=== PATIENT | female | born 1965 | race Hispanic/Latino ===

== ENCOUNTER 2016-09-18 10:16 | Emergency (ER) | payer OTHER ==
[~2016-09-18] VITALS: Ht 165.1 cm; Wt 68.0 kg
[~2016-09-18 10:16] MED LIST: CARAFATE1 GM/10 ML PO; IBU600 MG PO; OMEPRAZOLE D/R20 MG PO; TRAMADOL50 MG PO
--- NOTE | 2016-09-18 10:46 | ED GENERAL ADULT ---
History of Present Illness General Chief Complaint: Neck/Upper Back Pain/Injury Stated Complaint: NECK AND UPPER BACK PAIN X 1WEEK Source: patient, family, old records Exam Limitations: language barrier Vital Signs & Intake/Output Vital Signs & Intake/Output Vital Signs Date Time Temp Pulse Resp B/P Pulse O2 O2 Flow FiO2 Ox Delivery Rate 09/18 1235 97.8 62 20 154/83 99 Room Air 09/18 1020 96.9 71 18 148/92 98 Room Air Allergies Coded Allergies: No Known Allergies (12/09/15) Reconcile Medications Omeprazole 20 MG ECC 1 CAP PO DAILY GI (Reported) Triage Note: 51 Y/O FEMALE C/O HEADACHE AND NECK PAIN X 8 DAYS; DENIES INJURY OR TRAUMA. STATES NECK PAIN IS WORSE WITH MOVEMENT OR TURNING HEAD SIDE TO SIDE. Triage Nurses Notes Reviewed? yes Onset: Last week Duration: day(s):, continues in ED, waxing and waning Timing: recent history Injury Environment: home Severity: moderate No Modifying Factors: none LMP (ages 10-50): post menopausal : No Patient currently breastfeeds: No HPI: Patient reports suffering from chronic headaches. 8 days prior to admission patient reports waxing and waning generalized headache radiating to her neck and shoulders monitor severe mild to moderate improvement with ibuprofen. The pain is worse with head movement. There's been no fever chills nausea vomiting diarrhea abdominal pain chest pain shortness of breath dysuria rash bleeding change in motor sensory function change in bowel bladder habit trauma. Past History Travel History Traveled to [place] past 21 day No Medical History Any Pertinent Medical History? see below for history Neurological: NONE EENT: NONE Cardiovascular: NONE Respiratory: NONE Gastrointestinal: GERD, ULCERS Hepatic: NONE Renal: NONE Musculoskeletal: NONE Psychiatric: NONE Endocrine: NONE Blood Disorders: NONE Cancer(s): NONE GENERAL DOC/Reproductive: NONE Surgical History Surgical History: UTERINE POLYPECTOMY Psychosocial History What is your primary language Luxembourgish Tobacco Use: Never used Family History Hx Contributory? No Review of Systems Review of Systems Constitutional: Reports: no symptoms. EENTM: Reports: no symptoms. Respiratory: Reports: no symptoms. Cardiovascular: Reports: no symptoms. GI: Reports: no symptoms. Genitourinary: Reports: no symptoms. Musculoskeletal: Reports: see HPI, muscle pain, neck pain. Skin: Reports: no symptoms. Neurological/Psychological: Reports: see HPI, headache. Hematologic/Endocrine: Reports: no symptoms. Immunologic/Allergic: Reports: no symptoms. All Other Systems: Reviewed and Negative Physical Exam Physical Exam General Appearance: well developed/nourished, alert, awake, anxious, mild distress, obese Head: atraumatic, normal appearance Eyes: Bilateral: normal appearance, PERRL, EOMI. Ears, Nose, Throat: normal pharynx, normal ENT inspection Neck: normal inspection, full range of motion, no midline tenderness Respiratory: normal breath sounds, chest non-tender, no respiratory distress, quiet respiration, lungs clear Cardiovascular: regular rate/rhythm, normal peripheral pulses, norml femoral pulses equa Peripheral Pulses: 4+ carotid (R), 4+ carotid (L) Gastrointestinal: normal bowel sounds, soft, non-tender, no organomegaly Back: normal inspection, normal range of motion, no vertebral tenderness Extremities: normal inspection, normal capillary refill, normal range of motion, no edema Neurologic/Psych: no motor/sensory deficits, awake, alert, oriented x 3, normal gait, 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 Skin: intact, normal color, warm/dry Lymphatic: no anterior cervical negrita Core Measures ACS in differential dx? No CVA/TIA Diagnosis: No Severe Sepsis Present: No Septic Shock Present: No Progress Differential Diagnoses I considered the following diagnoses in my evaluation of the patient: Cluster headache migraine headache tension headache cervical myofascial pain syndrome Plan of Care: Orders Procedure Date/time Status COMPREHENSIVE METABOLIC PANEL 09/18 1036 Complete CBC WITHOUT DIFFERENTIAL 09/18 1036 Complete Laboratory Tests 09/18/16 1048: Anion Gap 11, Estimated GFR > 60, BUN/Creatinine Ratio 21.3, Glucose 103 H, Calcium 9.0, Total Bilirubin 0.6, AST 47 H, ALT 65 H, Alkaline Phosphatase 89, Total Protein 7.2, Albumin 4.1, Globulin 3.1, Albumin/Globulin Ratio 1.3, CBC w Diff NO MAN DIFF REQ, RBC 4.41, MCV 82.5, MCH 28.4, RDW 12.4, MPV 8.0, Gran % 51.3, Lymphocytes % 37.8, Monocytes % 7.8, Eosinophils % 2.7, Basophils % 0.4, Absolute Granulocytes 2.7, Absolute Lymphocytes 2.0, Absolute Monocytes 0.4, Absolute Eosinophils 0.1, Absolute Basophils 0, PUBS MCHC 34.4 Diagnostic Imaging: Viewed by Me: CT Scan. Discussed w/RAD: CT Scan. Radiology Impression: no acute abnormality Initial ED EKG: none Departure Departure Time of Disposition: 1404 Disposition: HOME OR SELF CARE Condition: Stable Clinical Impression Primary Impression: Cervical myofascial pain syndrome Secondary Impressions: Headache Qualifiers: Headache type: unspecified Headache chronicity pattern: acute headache Intractability: not intractable Qualified Code: R51 - Headache Referrals: PATIENT HAS NO PRIMARY CARE DR (PCP/Family) Referred to [facility] as new patient No Departure Forms: Customer Survey General Discharge Information Prescriptions: Current Visit Scripts Baclofen 1-2 TAB PO TID PRN muscle strain #30 TAB Butalb/Acetaminophen/Caffeine (Fioricet 50-300-40 MG Capsule) 1-2 TAB PO Q6P PRN headache #30 TAB Critical Care Note Critical Care Note Critical Care Time: non-applicable
[2016-09-18 11:14] LABS: ABSOLUTE BASOPHIL COUNT 0 /CUMM (0.0-0.2); ABSOLUTE EOSINOPHIL COUNT 0.1 /CUMM (0.0-0.7); ABSOLUTE GRANULOCYTE CT 2.7 /CUMM (1.4-6.5); ABSOLUTE MONOCYTE COUNT 0.4 /CUMM (0.10-0.60); BASOPHIL % 0.4 % (0.0-2.0); EOSINOPHIL % 2.7 % (0-5); GRANULOCYTE % 51.3 % (42.2-75.2); HEMATOCRIT 36.4 % (37-47); MEAN CORPUSCULAR HGB 28.4 PG (27.0-31.0); MEAN CORPUSCULAR HGB CONC 34.4 G/DL (33.0-37.0); MEAN CORPUSCULAR VOLUME 82.5 FL (81.0-99.0); PLATELET COUNT 282 /CUMM (130-400); RBC DISTRIBUTION WIDTH 12.4 % (11.5-14.5); RED BLOOD CELL CT 4.41 /CUMM (4.20-5.40); WHITE BLOOD CELL COUNT 5.2 /CUMM (4.8-10.8)
--- NOTE | 2016-09-18 12:40 | CT SCAN REPORT ---
EXAMINATION: CT HEAD WITHOUT CONTRAST CLINICAL INFORMATION: Migraine, 8 days of headache. COMPARISON: None. TECHNIQUE: Contiguous axial imaging was performed from the skull base to vertex without intravenous administration of contrast. DLP: 529.16 mGy-cm. FINDINGS: There is no evidence of acute intracranial hemorrhage or territorial infarction. No abnormal mass effect or midline shift is seen. Mckeon to white matter differentiation is well preserved. No extra-axial fluid collections are identified. The ventricles are normal in size. There is no abnormal attenuation within the brain parenchyma. The osseous structures and soft tissues are normal. The mastoid air cells and visualized portions of the paranasal sinuses are well aerated. IMPRESSION: 1. There are no acute intracranial findings. 2. The visualized mastoid air cells and paranasal sinuses are well-aerated.
[2016-09-18] MEDS ORDERED: BACLOFEN10 M1 PO (14:06)
[2016-09-18] MEDS ORDERED: FIORICET 50-301 EACH PO (14:06)
[2016-09-18 14:11] VITALS: BP 148/70
== END 2016-09-18 14:14 ==
LOC: ERH 10:16
PROVIDERS: Emergency Medicine
DX: M54.2 Cervicalgia (principal); R51 Headache
CPT/HCPCS: 96361; 96374; 96375; J0131; J2765; J3360

== ENCOUNTER 2016-10-13 12:41 | Emergency (ER) | payer OTHER ==
[~2016-10-13] VITALS: Ht 162.6 cm; Wt 70.8 kg
[~2016-10-13 12:41] MED LIST changes: +BACLOFEN10 M1 PO; +FIORICET 50-301 EACH PO
[2016-10-13] MEDS ORDERED: OMEPRAZOLE20 M2 PO (13:14)
[2016-10-13 14:04] LABS: ABSOLUTE BASOPHIL COUNT 0 /CUMM (0.0-0.2); ABSOLUTE EOSINOPHIL COUNT 0.1 /CUMM (0.0-0.7); ABSOLUTE GRANULOCYTE CT 6.8 /CUMM (1.4-6.5); ABSOLUTE LYMPH COUNT 1.2 /CUMM (1.2-3.4); ABSOLUTE MONOCYTE COUNT 0.7 /CUMM (0.10-0.60); BASOPHIL % 0.2 % (0.0-2.0); EOSINOPHIL % 0.9 % (0-5); HEMATOCRIT 40.2 % (37-47); MEAN CORPUSCULAR HGB 28.6 PG (27.0-31.0); MEAN CORPUSCULAR HGB CONC 34.2 G/DL (33.0-37.0); MEAN CORPUSCULAR VOLUME 83.6 FL (81.0-99.0); MEAN PLATELET VOLUME 8.4 FL (7.4-10.4); PLATELET COUNT 257 /CUMM (130-400); RBC DISTRIBUTION WIDTH 12.3 % (11.5-14.5); RED BLOOD CELL CT 4.82 /CUMM (4.20-5.40); WHITE BLOOD CELL COUNT 8.8 /CUMM (4.8-10.8)
[2016-10-13 14:05] LABS: GRANULOCYTE % 77.1 % (42.2-75.2)
--- NOTE | 2016-10-13 14:59 | ED GI/GU/ABDOMINAL COMPLAINT ---
History of Present Illness General Chief Complaint: Abdominal Pain/Flank Pain Stated Complaint: ABD PAIN Source: patient Exam Limitations: no limitations Vital Signs & Intake/Output Vital Signs & Intake/Output Vital Signs Date Time Temp Pulse Resp B/P Pulse O2 O2 Flow FiO2 Ox Delivery Rate 10/13 1925 68 18 134/78 96 Room Air 10/13 1613 98.0 68 18 128/77 99 Room Air 10/13 1249 98.1 67 20 126/80 97 Room Air Allergies Coded Allergies: No Known Allergies (12/09/15) Triage Note: RECEIVED 51 YO FEMALE C/O MID UPPER ABDOMINAL PAIN, STARTED YESTERDAY, MUCH WORSE THIS AM WITH NAUSEA AND VOMITING X 2. Triage Nurses Notes Reviewed? yes ? n Is pt currently ? No Onset: Abrupt Duration: day(s): (few), constant, continues in ED Timing: recent history Location: epigastric Radiation: no radiation Activities at Onset: none No Modifying Factors: none HPI: 51-year-old female comes into emergency room for further evaluation of upper abdominal pain has been going on for the past couple days. Patient has had associated belching. Denies any blood in her stool. 2 episodes of vomiting. Patient has also been feeling dizzy. Denies any chest pain or shortness of breath. History of ulcers in the past and had an upper endoscopy done a little over a month ago which confirmed an ulcer. Patient has been on omeprazole at home. Denies any fever or chills. Denies any other associated symptoms. (DIDIER TRACY,JORGE) Reconcile Medications Baclofen 10 MG TABLET 1-2 TAB PO TID PRN muscle strain Butalb/Acetaminophen/Caffeine (Fioricet 50-300-40 MG Capsule) 50 MG-300 MG-40 MG CAPSULE 1-2 TAB PO Q6P PRN headache Omeprazole 20 MG ECC 1 CAP PO DAILY GI (Reported) Omeprazole 20 MG CAPSULE.DR 1 CAP PO DAILY ULCER (Reported) Ondansetron (Zofran Odt) 4 MG TAB.RAPDIS 1 TAB SL TID NAUSEA Oxycodone HCl/Acetaminophen (Percocet 5-325 MG Tablet) 5 MG-325 MG TABLET 1-2 TAB PO Q6P PRN pain Scopolamine Hydrobromide (Transderm-Scop) 1.5MG/3DAY PATCH.TD.3 1 PAT TOP Q3D NAUSEA apply to the hairless area behind 1 ear at least 4 hours before effect is required; reapply every 3 days as needed (LACY ENGEL DO) Past History Travel History Traveled to [place] past 21 day No Medical History Any Pertinent Medical History? 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 No (JORGE MONDRAGON) Review of Systems Review of Systems Constitutional: Reports: no symptoms. EENTM: Reports: no symptoms. Respiratory: Reports: no symptoms. Cardiovascular: Reports: no symptoms. GI: Reports: see HPI. Genitourinary: Reports: see HPI. Musculoskeletal: Reports: no symptoms. Skin: Reports: no symptoms. Neurological/Psychological: Reports: no symptoms. Hematologic/Endocrine: Reports: no symptoms. Immunologic/Allergic: Reports: no symptoms. All Other Systems: Reviewed and Negative (JORGE MONDRAGON) Physical Exam Physical Exam General Appearance: well developed/nourished, no apparent distress, alert Head: atraumatic, normal appearance Eyes: Bilateral: normal appearance, PERRL, EOMI. Ears, Nose, Throat, Mouth: hearing grossly normal, moist mucous membrane Neck: normal inspection, supple, full range of motion Respiratory: normal breath sounds, chest non-tender, no respiratory distress Cardiovascular: regular rate/rhythm Gastrointestinal: normal bowel sounds, soft, tenderness (epigastric) Back: normal inspection Extremities: normal range of motion Neurologic/Psych: awake, alert, oriented x 3, normal gait, normal mood/affect Skin: intact, normal color Core Measures ACS in differential dx? No Severe Sepsis Present: No Septic Shock Present: No (JORGE MONDRAGON) Progress Differential Diagnosis: appendicitis, biliary colic, bowel obstruction, cholecystitis, diverticulitis, gastritis, hepatitis, hernia, intrauterine , kidney stone, ovarian cyst, ovarian torsion, pancreatitis, PID/ cervicitis, peptic ulcer, PUD/GERD, perforated viscous, SBO, threatened AB, UTI/ pyelo Plan of Care: Orders Procedure Date/time Status URINALYSIS 10/13 1328 Complete TROPONIN LEVEL 10/13 1327 Complete LIPASE 10/13 1328 Complete COMPREHENSIVE METABOLIC PANEL 10/13 1327 Complete CBC WITHOUT DIFFERENTIAL 10/13 1327 Complete AMYLASE 10/13 1327 Complete EKG 10/13 1308 Active Laboratory Tests 10/13/16 1345: Urine Color STRAW, Urine Clarity CLEAR, Urine pH 6.0, Ur Specific [place] <= 1.005, Urine Protein NEG, Urine Ketones NEG, Urine Nitrite NEG, Urine Bilirubin NEG, Urine Urobilinogen 0.2, Ur Leukocyte Esterase NEG, Ur Microscopic EXAM NOT REQUIRED, Urine Hemoglobin NEG, Urine Glucose NEG 10/13/16 1330: Anion Gap 12, Estimated GFR > 60, BUN/Creatinine Ratio 22.9, Glucose 92, Calcium 9.3, Total Bilirubin 0.5, AST 29, ALT 48, Alkaline Phosphatase 93, Troponin I < 0.01, Total Protein 7.6, Albumin 4.4, Globulin 3.2, Albumin/Globulin Ratio 1.4, Amylase 90, Lipase 200, CBC w Diff NO MAN DIFF REQ, RBC 4.82, MCV 83.6, MCH 28.6 , RDW 12.3, MPV 8.4, Gran % 77.1 H, Lymphocytes % 14.0 L, Monocytes % 7.8, Eosinophils % 0.9, Basophils % 0.2, Absolute Granulocytes 6.8 H, Absolute Lymphocytes 1.2, Absolute Monocytes 0.7 H, Absolute Eosinophils 0.1, Absolute Basophils 0, PUBS MCHC 34.2 Diagnostic Imaging: Viewed by Me: CT Scan. Discussed w/RAD: CT Scan. Radiology Impression: SERVICE DATE: 10/13/16 EXAM TYPE: CAT - CT ABD & PELVIS W IV CONTRAST EXAMINATION: CT ABDOMEN AND PELVIS WITH CONTRAST CLINICAL INFORMATION: Abdominal pain. COMPARISON: Multiple priors, most recent CT abdomen /pelvis dated 12/11/2015. TECHNIQUE: Multidetector volumetric imaging was performed of the abdomen and pelvis before and after the IV administration of 93 mL of Optiray 320 intravenous contrast. Sagittal and coronal reformatted images were obtained on the technologist's workstation. DLP: 292.35 mGy-cm. FINDINGS: LUNG BASES: There are dependent atelectatic changes in the bilateral lung bases. The lungs are otherwise clear. LIVER, GALLBLADDER, AND BILIARY TREE: An indeterminate hypodense lesion is again noted within the left lobe of the liver now measuring 2.6 cm in greatest dimension (previously 2.5 cm with more vague borders). Followup 3-phase CT or dedicated liver MR could be considered to help further characterize. The gallbladder is unremarkable with no evidence of radiopaque gallstones, gallbladder wall thickening, or obvious pericholecystic inflammatory changes. PANCREAS: Unremarkable. SPLEEN: Unremarkable. ADRENAL GLANDS: Unremarkable. KIDNEYS AND URETERS: The kidneys are normal in size, shape , and attenuation. There is a stable 6 mm hypodensity within the midpole of the left kidney, likely representing a cyst. No hydronephrosis, hydroureter, or calculi seen. No perinephric stranding. BLADDER: Unremarkable. GASTROINTESTINAL TRACT: There is no large- or small-bowel obstruction. 1.2 cm ovoid hyperdensities are noted within the cecum and the hepatic flexure, which could represent ingested pills. The appendix is normal. ABDOMINAL WALL: No significant hernia is appreciated. LYMPH NODES: Normal. VASCULAR: Unremarkable. PELVIC VISCERA: Unremarkable. OSSEOUS STRUCTURES: Mild degenerative changes are noted within the visualized thoracic and lumbar spine. There is no lytic or blastic osseous lesion. IMPRESSION: 1. No acute intra-abdominal pathology. 2. Indeterminate hypodense lesion within the left lobe of the liver which appears slightly more prominent than on the prior examination. Followup triple-phase hepatic CT or dedicated hepatic MRI could be considered to help further characterize if clinically indicated. 3. No large- or small-bowel obstruction. Hyperdensities within the cecum and hepatic flexures, which could represent ingested pills. DICTATED BY: DANAE TAYLOR MD DATE/TIME DICTATED:10/13/161447 ATTENDING PHYSICIAN:SARAH DATE/TIME TRANSCRIBED:10/13/161447 CONFIDENTIAL, DO NOT COPY WITHOUT APPROPRIATE AUTHORIZATION. <Electronically signed in Other Vendor System> SIGNED BY: DANAE TAYLOR MD 10/13/16 1523 Initial ED EKG: normal intervals, normal p-waves, normal sinus rhythm, rate (66) , nonspecific ST T wave chg (JORGE MONDRAGON) Departure Departure Disposition: HOME OR SELF CARE Condition: Stable Clinical Impression Primary Impression: Abdominal pain Secondary Impressions: Nausea and vomiting Referrals: PATIENT HAS NO PRIMARY CARE DR (PCP/Family) Additional Instructions: Take Zofran ODT and scopolamine appropriate as prescribed. Follow-up with your GI doctor on Saturday. Return to the emergency room immediately if any other concerns worsening symptoms. Please go over all results of today's visit with your primary care doctor. Contact your primary care doctor to let them know you were here in the emergency room. There may be nonspecific findings which may not be related to your visit today here in the emergency room but may require further evaluation and chronic monitoring by your primary care doctor. If you had a laceration today the chance of foreign body always remains. You should follow-up with your primary care doctor for recheck in 3-5 days for a wound check. If you had an x-ray done there is a chance that a fracture could have been missed on initial read and you should follow-up with your primary care doctor for repeat x-rays if symptoms persist. If your blood pressure was elevated here in the emergency room please have rechecked by her primary care doctor within the next 48 hours by your primary care doctor. If you were prescribed a narcotic here in the emergency room or any type of controlled substances you're not allowed to drive while taking this medication or operate any type of heavy machinery. Narcotics can make you feel lightheaded dizziness nausea and can cause constipation. You may need to pickling operator a stool softener. Thank you for choosing [facility] emergency room. Please return to the emergency room immediately if you have any other concerns worsening of symptoms. Departure Forms: Customer Survey General Discharge Information Comments 10/13/2016 6:59:11 PM Patient clinically looks well. Patient is nontoxic-appearing. Patient is in no apparent distress. Patient reevaluated multiple times here in the emergency room. After multiple doses of IV meds patient feels better. Patient referred back to her GI doctor. Patient has no chest pain or shortness of breath here. Shared decision making. Patient wants to go home and feels well enough to go home. Rectal exam revealed no blood. Patient has abdominal pain on exam. I do not feel that this is an atypical cardiac presentation. Daughter was sick with similar symptoms. 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 Symptoms could be viral versus peptic ulcer disease. Return to the emergency room immediately if any other concerns worsening symptoms. Case was discussed with Dr. garcia. (DIDIER TRACYOWENTON) Departure Prescriptions: Current Visit Scripts Ondansetron (Zofran Odt) 1 TAB SL TID #15 TAB Scopolamine Hydrobromide (Transderm-Scop) 1 PAT TOP Q3D #4 PAT apply to the hairless area behind 1 ear at least 4 hours before effect is required; reapply every 3 days as needed Oxycodone HCl/Acetaminophen (Percocet 5-325 MG Tablet) 1-2 TAB PO Q6P PRN pain #12 TAB PA/SECURITY SALES CONSULTANT Co-Sign Statement Statement: ED Attending supervision documentation- [] I saw and evaluated the patient. I have also reviewed all the pertinent lab results and diagnostic results. I agree with the findings and the plan of care as documented in the PA's/SECURITY SALES CONSULTANT's documentation. [x] I have reviewed the ED Record and agree with the PA's/SECURITY SALES CONSULTANT's documentation. [] Additions or exceptions (if any) to the PAs/SECURITY SALES CONSULTANT's note and plan are summarized below: [] (LACY ENGEL DO
--- NOTE | 2016-10-13 15:23 | CT SCAN REPORT ---
EXAMINATION: CT ABDOMEN AND PELVIS WITH CONTRAST CLINICAL INFORMATION: Abdominal pain. COMPARISON: Multiple priors, most recent CT abdomen/pelvis dated 12/11/2015. TECHNIQUE: Multidetector volumetric imaging was performed of the abdomen and pelvis before and after the IV administration of 93 mL of Optiray 320 intravenous contrast. Sagittal and coronal reformatted images were obtained on the technologist's workstation. DLP: 292.35 mGy-cm. FINDINGS: LUNG BASES: There are dependent atelectatic changes in the bilateral lung bases. The lungs are otherwise clear. LIVER, GALLBLADDER, AND BILIARY TREE: An indeterminate hypodense lesion is again noted within the left lobe of the liver now measuring 2.6 cm in greatest dimension (previously 2.5 cm with more vague borders). Followup 3-phase CT or dedicated liver MR could be considered to help further characterize. The gallbladder is unremarkable with no evidence of radiopaque gallstones, gallbladder wall thickening, or obvious pericholecystic inflammatory changes. PANCREAS: Unremarkable. SPLEEN: Unremarkable. ADRENAL GLANDS: Unremarkable. KIDNEYS AND URETERS: The kidneys are normal in size, shape, and attenuation. There is a stable 6 mm hypodensity within the midpole of the left kidney, likely representing a cyst. No hydronephrosis, hydroureter, or calculi seen. No perinephric stranding. BLADDER: Unremarkable. GASTROINTESTINAL TRACT: There is no large- or small-bowel obstruction. 1.2 cm ovoid hyperdensities are noted within the cecum and the hepatic flexure, which could represent ingested pills. The appendix is normal. ABDOMINAL WALL: No significant hernia is appreciated. LYMPH NODES: Normal. VASCULAR: Unremarkable. PELVIC VISCERA: Unremarkable. OSSEOUS STRUCTURES: Mild degenerative changes are noted within the visualized thoracic and lumbar spine. There is no lytic or blastic osseous lesion. IMPRESSION: 1. No acute intra-abdominal pathology. 2. Indeterminate hypodense lesion within the left lobe of the liver which appears slightly more prominent than on the prior examination. Followup triple-phase hepatic CT or dedicated hepatic MRI could be considered to help further characterize if clinically indicated. 3. No large- or small-bowel obstruction. Hyperdensities within the cecum and hepatic flexures, which could represent ingested pills.
[2016-10-13] MEDS ORDERED: TRANSDERM-SCOP1 EACH TOP (18:33)
[2016-10-13] MEDS ORDERED: ZOFRAN ODT4 M1 SL (18:33)
[2016-10-13] MEDS ORDERED: PERCOCET 5-3251 EACH PO (19:20)
[2016-10-13 19:25] VITALS: BP 134/78
== END 2016-10-13 19:26 ==
LOC: ERH 12:41
PROVIDERS: Physician Assistant Medical
DX: R10.13 Epigastric pain (principal); R11.2 Nausea with vomiting, unspecified
CPT/HCPCS: 74177; 81003; 93005; 93010; 96361; 96365; 96375; J2765; J3360

== ENCOUNTER 2016-12-26 08:06 | Emergency (ER) | payer OTHER ==
[~2016-12-26] VITALS: Ht 152.4 cm; Wt 72.1 kg
[~2016-12-26 08:06] MED LIST changes: +OMEPRAZOLE20 M2 PO; +PERCOCET 5-3251 EACH PO; +TRANSDERM-SCOP1 EACH TOP; +ZOFRAN ODT4 M1 SL
[2016-12-26 08:12] VITALS: BP 148/84
--- NOTE | 2016-12-26 08:44 | ED UPPER/LOWER EXTREMITY COMPL ---
History of Present Illness General Chief Complaint: Lower Extremity Problems Stated Complaint: CAROLYN FOOT PAIN Source: patient, family, old records Exam Limitations: language barrier Vital Signs & Intake/Output Vital Signs & Intake/Output Vital Signs Date Time Temp Pulse Resp B/P Pulse O2 O2 Flow FiO2 Ox Delivery Rate 12/26 0823 98 12/26 08 97.8 68 20 148/84 98 Room Air Allergies Coded Allergies: No Known Allergies (12/09/15) Reconcile Medications Baclofen 10 MG TABLET 1-2 TAB PO TID PRN muscle strain Butalb/Acetaminophen/Caffeine (Fioricet 50-300-40 MG Capsule) 50 MG-300 MG-40 MG CAPSULE 1-2 TAB PO Q6P PRN headache Omeprazole 20 MG ECC 1 CAP PO DAILY GI (Reported) Omeprazole 20 MG CAPSULE.DR 1 CAP PO DAILY ULCER (Reported) Ondansetron (Zofran Odt) 4 MG TAB.RAPDIS 1 TAB SL TID NAUSEA Oxycodone HCl/Acetaminophen (Percocet 5-325 MG Tablet) 5 MG-325 MG TABLET 1-2 TAB PO Q6P PRN pain Scopolamine Hydrobromide (Transderm-Scop) 1.5MG/3DAY PATCH.TD.3 1 PAT TOP Q3D NAUSEA apply to the hairless area behind 1 ear at least 4 hours before effect is required; reapply every 3 days as needed Tylenol With Codeine (Tylenol With Codeine #3 Tablet) 300 MG-30 MG TABLET 1 TAB PO BIDP PRN PAIN Triage Note: PT C/O BILATERAL HAND AND FOOT PAIN X MONTHS BUT STATES TODAY THE PAIN IS WORSE. PT DENIES ANY INJURY Triage Nurses Notes Reviewed? yes Onset: Gradual Duration: x several years Timing: recent history Severity: moderate, severe Severity Numbers: 10 Pain/Injury Location: Bilateral: Hand. HPI: 51-year-old female presents emergency room with her daughter who is providing the history as the patient does not speak Indonesian complaining of a several year history of bilateral hand and foot pain has been getting worse over the past several months. The patient is currently visiting from [facility]. She's been taking dyap-ohf-dulbisy Aleve without improvement she denies any known injury or trauma no recent tick or insect bites. No rashes to her skin no swelling to her joints. She denies any chest pain shortness of breath abdominal pain nausea or vomiting fevers or chills. Nothing makes the pain better or worse (BESS MCMILLAN) Past History Travel History Traveled to [place] past 21 day No Medical History Any Pertinent Medical History? 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 No (BESS MCMILLAN) Review of Systems Review of Systems Constitutional: Reports: see HPI. All Other Systems: Reviewed and Negative Comments Review of systems: See HPI, All other systems negative. Constitutional, no chills no fever, no malaise HEENT: No visual changes no sore throat no congestion Cardiovascular: No chest pain , no palpitation , Skin, no rashes, no change in skin Respiratory: No dyspnea no cough no sputum no hemoptysis GI: No nausea no vomiting, no diarrhea, : No dysuria No hematuria, Muscle skeletal: joint pain, no joint swelling, no back pain, no neck pain, Neurologic: No numbness no confusion, no headache Psych: No stress Heme/endocrine: No bruising no bleeding Immunology: No lymphadenopathy (BESS MCMILLAN) Physical Exam Physical Exam General Appearance: well developed/nourished, no apparent distress, alert Comments: Well-developed well-nourished patient in no apparent distress. HEENT: Atraumatic, extraocular motion intact Neck: Supple, FROM Back: FROM, Nontender Cardiovascular: Regular rate and rhythms no murmurs rubs Respiratory: Chest nontender.There were no bony deformities, no asymmetry. No respiratory distress. Patient speaking in full complete sentences. Breath sounds clear to auscultation bilaterally: NO W/R/R Shoulder: Atraumatic/Stable. FROM . Elbow: Atraumatic/stable. FROM. No laxity Upper arm/Forearm: Atraumatic. Nontender. 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 Skin intact. FROM Pulses: Normal/equal radial pulses bilaterally. Brisk cap refill Hip/Pelvis: Atraumatic/Stable. FROM. No pain with pelvic compression Knee: Atraumatic/stable. FROM. No joint swelling, no effusion. No laxity. No pain with ROM Leg: Atraumatic. Nontender. No edema, 5 out of 5 strength in the lower extremity, normal dorsiflexion of great toe bilaterally, gross sensation is intact Ankle/Foot: Atraumatic/stable. Skin intact. FROM. No swelling, no effusion. No laxity on exam Pulses: Normal/equal DP/PT pulses bilaterally. Brisk cap refill Neuro: Alert and oriented x3 Skin: Warm & dry;No appreciable rash on exposed skin Psych: Mood affect normal, normal memory normal judgment. (BESS MCMILLAN) Progress Differential Diagnosis: contusion, fracture, gout, septic arthritis, sprain, tendon injury, ra, lyme, arthritis Plan of Care: Current Medications Sig/Soledad Start time Last Medication Dose Stop Time Status Admin Tramadol HCl 50 MG ONCE ONE 12/26 914 AC (Ultram) 12/27 915 Patient symptoms have been present for several years there's been no recent injury or trauma to which she requires a workup patient is nontoxic-appearing in no apparent distress 5 out of 5 strength upper and lower extremities advise close follow-up with her primary care physician Nataliya for Tylenol with Codeine provided I had an extensive conversation regarding need for close follow up with their primary care physician this week as well as return precautions. I answered all of their questions, they feel comfortable with the plan and follow-up care. I discussed the medications that they will receive with the patient. I gave them signs and symptoms that could indicate an adverse reaction. I have advised them to limit their activities until they can see how they respond to the medication. (BESS MCMILLAN) Departure Departure Time of Disposition: 902 Disposition: HOME OR SELF CARE Condition: Stable Clinical Impression Primary Impression: Chronic joint pain Referrals: PATIENT HAS NO PRIMARY CARE DR (PCP/Family) JOHNNIE SMITH MD Additional Instructions: FOLLOW UP WITH PMD DR SMITH. tylenol with codeine FOR PAIN- THIS MAY MAKE YOU DROWSY. IBUPROFEN 800MG O EVERY 8 HOURS NEEDED. THIS [facility] SENT TO [facility] Departure Forms: Customer Survey General Discharge Information Prescriptions: Current Visit Scripts Tylenol With Codeine (Tylenol With Codeine #3 Tablet) 1 TAB PO BIDP PRN PAIN #10 TAB (BESS MCMILLAN) PA/PULLER OUT Co-Sign Statement Statement: ED Attending supervision documentation- [] I saw and evaluated the patient. I have also reviewed all the pertinent lab results and diagnostic results. I agree with the findings and the plan of care as documented in the PA's/PULLER OUT's documentation. x I have reviewed the ED Record and agree with the PA's/PULLER OUT's documentation. [] Additions or exceptions (if any) to the PAs/PULLER OUT's note and plan are summarized below: [] (YANCY OLIVER,CECILE)
[2016-12-26] MEDS ORDERED: TRAMADOL HCL50 M1 PO (09:04)
[2016-12-26] MEDS ORDERED: TYLENOL WITH C1 EACH PO (09:07)
== END 2016-12-26 09:10 ==
LOC: ERH 08:06
DX: G89.29 Other chronic pain (principal); M25.571 Pain in right ankle and joints of right foot; M25.572 Pain in left ankle and joints of left foot; M25.541 Pain in joints of right hand; M25.542 Pain in joints of left hand